=== PATIENT | male | born 1960 | race African-American/Black ===

== ENCOUNTER 2022-04-29 14:29 | Inpatient (IN) | payer MEDICARE, MEDICAID ==
[~2022-04-29] VITALS: Ht 177.8 cm; Wt 63.3 kg
[2022-04-29] MEDS ORDERED: FUROSEMIDE 40MG/4ML VIAL IV ONE (15:00)
[2022-04-29 15:13] LABS: BG BASE EXCESS -2.3 mmol/L (-2.0-2.0); BG CARBOXYHEMOGLOBIN 1.2 % (0.5-1.5); BG DEOXYHEMOGLOBIN 6.3 % (0.0-5.0); BG HCO3 ACT 21.6 mmol/L (22.0-26.0); BG METHEMOGLOBIN 0.1 % (0.0-1.5); BG OXYGEN SATURATION 93.6 % (92.0-98.5); BG OXYHEMOGLOBIN 92.4 % (94.0-97.0); BG SAMPLE SITE LEFT RADIAL; BG TOTAL HEMOGLOBIN 11.5 g/dL (12.0-18.0); BG VENT MODE ROOM AIR
[2022-04-29] MEDS: AZITHROMYCIN 500 MG in DEXT 5% WATER 250 ML IV SCH (15:30)
[2022-04-29] MEDS ORDERED: CEFTRIAXONE 1 G PREMIX 50 ML IV ONE (15:30)
[2022-04-29 16:24] LABS: BASOPHILS % 0.8 % (0.0-2.0); EOSINOPHILS % 2.1 % (0.0-5.0); HEMATOCRIT. 32.5 % (42.0-52.0); HEMOGLOBIN. 10.2 g/dL (14.0-18.0); LYMPHOCYTES % 9.5 % (20.0-50.0); MEAN CORPUSCULAR HEMOGLOBIN 31.2 pg (28.0-32.0); MEAN CORPUSCULAR VOLUME 99.6 fL (80.0-94.0); MEAN PLATELET VOLUME 9.5 fl (7.4-10.4); MONOCYTES % 6.7 % (2.0-8.0); NEUTROPHILS % 80.9 % (40.0-76.0); PLATELET 196 x1000/uL (130-400); RED BLOOD CELL COUNT 3.27 mill/uL (4.7-6.1); RED CELL DISTRIBUTION WIDTH 19.4 % (11.6-14.6)
[2022-04-29 16:42] LABS: CHLORIDE 115 mEq/L (98-107)
[2022-04-29] MEDS ORDERED: MAGNESIUM/ALUMINUM HYDROXIDE/SIMETHICONE 30ML UDC PO PRN (18:15)
[2022-04-29] MEDS ORDERED: ACETAMINOPHEN 325MG TABLET PO PRN (18:15)
[2022-04-29] MEDS ORDERED: ONDANSETRON HCL 4MG/2ML INJ IV PRN (18:15)
[2022-04-29] MEDS ORDERED: DOCUSATE SODIUM 100MG CAPSULE PO PRN (18:15)
[2022-04-29] MEDS ORDERED: CLONIDINE 0.1MG TABLET PO PRN (18:15)
[2022-04-29] MEDS ORDERED: GUAIFENESIN 200MG/10ML SUGAR FREE UDC PO PRN (18:15)
[2022-04-29] MEDS ORDERED: IPRATROPIUM/ALBUTEROL 0.5-3(2.5)MG/3ML NEB HHN PRN (18:15)
[2022-04-29] MEDS ORDERED: DIPHENHYDRAMINE 50MG/ML VIAL IV PRN (18:15)
[2022-04-29 18:46] LABS: BG BASE EXCESS -4.8 mmol/L (-2.0-2.0); BG CARBOXYHEMOGLOBIN 1.3 % (0.5-1.5); BG DEOXYHEMOGLOBIN 1.5 % (0.0-5.0); BG FRACTION INSPIRED OXYGEN 38; BG HCO3 ACT 19.9 mmol/L (22.0-26.0); BG METHEMOGLOBIN 0.3 % (0.0-1.5); BG OXYGEN SATURATION 98.5 % (92.0-98.5); BG OXYHEMOGLOBIN 96.9 % (94.0-97.0); BG PCO2 35.4 mmHg (35.0-45.0); BG PH 7.368 (7.350-7.450); BG PO2 123.2 mmHg (75.0-100.0); BG SAMPLE SITE RIGHT RADIAL; BG TOTAL HEMOGLOBIN 10.8 g/dL (12.0-18.0); BG VENT MODE NASAL CANNULA
[2022-04-29] MEDS ORDERED: FAMOTIDINE 20MG TABLET PO SCH (21:00)
[2022-04-29] MEDS: DILTIAZEM HCL 30MG TABLET PO SCH (22:01)
[2022-04-30] VITALS (13 sets, daily range): BP systolic 125–168; BP diastolic 86–100
[2022-04-30 00:44] LABS: CREATINE KINASE MB FRACTION 7.3 ng/mL (0.5-3.6)
[2022-04-30 00:58] LABS: HEPATITIS B SURFACE ANTIGEN NEGATIVE
[2022-04-30] MEDS ORDERED: CEFTRIAXONE 1 G PREMIX 50 ML IV SCH (06:45)
[2022-04-30] MEDS: DILTIAZEM HCL 30MG TABLET PO SCH ×2 (07:13→13:15)
[2022-04-30] MEDS ORDERED: FUROSEMIDE 40MG/4ML VIAL IVP SCH (07:15)
[2022-04-30] MEDS ORDERED: ASPIRIN 81MG EC TABLET PO SCH (09:00)
[2022-04-30] MEDS ORDERED: ENOXAPARIN 30MG/0.3ML SYR SUBCUT SCH (09:00)
[2022-04-30] MEDS ORDERED: CEFTRIAXONE 1,000 MG in DEXTROSE 5% WATER 50 ML IV SCH (15:00)
[2022-04-30 15:19] LABS: CHLORIDE 109 mEq/L (98-107)
[2022-04-30] MEDS: AZITHROMYCIN 500 MG in DEXT 5% WATER 250 ML IV SCH (15:30)
[2022-04-30 15:33] LABS: HDL CHOLESTEROL 48 mg/dL (40-59); LDL CHOLESTEROL 123 mg/dL (5-100); T4 FREE 1.21 ng/dL (0.76-1.46)
[2022-04-30] MEDS ORDERED: AMLODIPINE 5MG TABLET PO SCH (17:00)
[2022-04-30] MEDS ORDERED: PHENYLEPH/PRAMOXIN/GLYCR/PET RECTAL CREAM 26GM PR SCH (18:00)
[2022-05-01] MEDS ORDERED: PANTOPRAZOLE SODIUM 40 MG/VIAL IV SCH (09:00)
== END 2022-04-30 16:25 | disposition left against medical advice (07) | DRG 177 ==
LOC: ER 14:29 → MICUSO 16:20 → EDBEDREQ 16:22 → EDBEDREQTM 16:22 → ENRESERV 23:08 → 7EST 04-30 00:52
PROVIDERS: ADMIT Internal Medicine; ATTEND Internal Medicine
PROC: 5A09357 Assistance with Respiratory Ventilation, Less than 24 Consecutive Hours, Continuous Positive Airway Pressure (ICD-10-PCS; principal; 2022-04-29)
PROC: 5A1D70Z Performance of Urinary Filtration, Intermittent, Less than 6 Hours Per Day (ICD-10-PCS; 2022-04-30)
DX: J69.0 Pneumonitis due to inhalation of food and vomit (principal); J96.91 Respiratory failure, unspecified with hypoxia; N18.6 End stage renal disease; I13.2 Hypertensive heart and chronic kidney disease with heart failure and with stage 5 chronic kidney disease, or end stage renal disease; E46 Unspecified protein-calorie malnutrition; Z20.822 Contact with and (suspected) exposure to COVID-19; J44.9 Chronic obstructive pulmonary disease, unspecified; F17.210 Nicotine dependence, cigarettes, uncomplicated; D63.1 Anemia in chronic kidney disease; D53.9 Nutritional anemia, unspecified; E88.09 Other disorders of plasma-protein metabolism, not elsewhere classified; Z53.29 Procedure and treatment not carried out because of patient's decision for other reasons; R73.03 Prediabetes; E78.5 Hyperlipidemia, unspecified; I50.9 Heart failure, unspecified; Z99.2 Dependence on renal dialysis; W19.XXXA Unspecified fall, initial encounter; Y93.89 Activity, other specified; Y92.89 Other specified places as the place of occurrence of the external cause; Y99.8 Other external cause status; K64.9 Unspecified hemorrhoids
CPT/HCPCS: 36415; 36600; 71045; 80053; 80061; 82375; 82550; 82553; 82805; 82962; 83036; 83880; 84439; 84443; 84484; 85025; 86705; 86709; 86803; 87340; 87426; 90935; 93005; 93970; 99291; C9803; J0456; J0696; J1650; J1940; J7060

== ENCOUNTER 2022-05-12 04:29 | Inpatient (IN) | payer MEDICARE, MEDICAID ==
[~2022-05-12] VITALS: Ht 175.3 cm; Wt 74.8 kg
[2022-05-12 08:23] LABS: BASOPHILS % 0.7 % (0.0-2.0); EOSINOPHILS % 0.9 % (0.0-5.0); HEMOGLOBIN. 11.2 g/dL (14.0-18.0); LYMPHOCYTES % 10.4 % (20.0-50.0); MEAN CORPUSCULAR HEMOGLOBIN 30.7 pg (28.0-32.0); MEAN CORPUSCULAR VOLUME 98.5 fL (80.0-94.0); MONOCYTES % 8.1 % (2.0-8.0); NEUTROPHILS % 79.9 % (40.0-76.0); PLATELET 95 x1000/uL (130-400); RED BLOOD CELL COUNT 3.65 mill/uL (4.7-6.1); RED CELL DISTRIBUTION WIDTH 17.7 % (11.6-14.6)
[2022-05-12 08:44] LABS: CHLORIDE 108 mEq/L (98-107)
[2022-05-12] MEDS ORDERED: METHYLPREDNISOLONE SOD SUCC 125 MG/2 ML VIAL IV ONE (09:00)
[2022-05-12] MEDS ORDERED: ASPIRIN 81MG TABLET PO ONE (10:00)
[2022-05-12] MEDS ORDERED: IPRATROPIUM/ALBUTEROL 0.5-3(2.5)MG/3ML NEB HHN PRN (10:00)
[2022-05-12] MEDS ORDERED: NA PHOS,M-B/NA PHOS,DI-BA ENEMA 118ML PR PRN (10:00)
[2022-05-12] MEDS ORDERED: GUAIFENESIN 200MG/10ML SUGAR FREE UDC PO PRN (10:00)
[2022-05-12] MEDS ORDERED: DEXTROSE 50% WATER 50ML SYRINGE IV PRN (10:00)
[2022-05-12] MEDS ORDERED: ACETAMINOPHEN 325MG TABLET PO PRN ×2 (10:00)
[2022-05-12] MEDS ORDERED: DOCUSATE SODIUM 100MG CAPSULE PO PRN (10:00)
[2022-05-12] MEDS ORDERED: NALOXONE HCL 0.4MG/ML VIAL IV PRN (10:30)
[2022-05-12] MEDS ORDERED: MORPHINE SULFATE 2 MG/ML CPJ (NOT FOR IM USE) IV PRN (10:30)
[2022-05-12] MEDS: ENOXAPARIN 30MG/0.3ML SYR SUBCUT SCH (11:08)
[2022-05-12] MEDS: FUROSEMIDE 40MG/4ML VIAL IVP SCH ×2 (11:30→17:00)
[2022-05-12] MEDS: BLOOD SUGAR DIAGNOSTIC STRIP TEST SCH ×3 (11:43→22:47)
[2022-05-12] MEDS: INSULIN LISPRO 100 UNITS/ML SUBCUT SCH ×3 (12:00→22:47)
[2022-05-12 12:59] LABS: HEPATITIS B SURFACE ANTIGEN NEGATIVE
[2022-05-12] MEDS: CLONIDINE 0.1MG TABLET PO PRN ×2 (17:02→17:04)
[2022-05-12] MEDS: BENAZEPRIL 10MG TABLET PO SCH (20:27)
[2022-05-12] MEDS ORDERED: FAMOTIDINE 20MG TABLET PO SCH (21:00)
[2022-05-12 23:31] VITALS: BP 176/110
[2022-05-12 23:40] VITALS: BP 176/100
[2022-05-12 23:45] VITALS: BP 161/110
[2022-05-13] VITALS (11 sets, daily range): BP systolic 109–159; BP diastolic 56–106
[2022-05-13] MEDS ORDERED: SITA50TA3 PO (00:38)
[2022-05-13] MEDS: BLOOD SUGAR DIAGNOSTIC STRIP TEST SCH ×2 (06:21→11:40)
[2022-05-13] MEDS: INSULIN LISPRO 100 UNITS/ML SUBCUT SCH ×2 (06:28→12:10)
[2022-05-13 07:18] LABS: HEMATOCRIT 36.5 % (42.0-52.0); HEMOGLOBIN 11.7 g/dL (14.0-18.0); MEAN CORPUSCULAR HEMOGLOBIN 31.1 pg (28.0-32.0); MEAN CORPUSCULAR VOLUME 96.6 fL (80.0-94.0); PLATELET 115 x1000/uL (130-400); RED BLOOD CELL COUNT 3.78 mill/uL (4.7-6.1); RED CELL DISTRIBUTION WIDTH 18.2 % (11.6-14.6)
[2022-05-13 08:03] LABS: PHOSPHORUS 5.6 mg/dL (2.5-4.9)
[2022-05-13] MEDS: FUROSEMIDE 40MG/4ML VIAL IVP SCH (09:16)
[2022-05-13] MEDS: ENOXAPARIN 30MG/0.3ML SYR SUBCUT SCH (09:17)
[2022-05-13] MEDS: BENAZEPRIL 10MG TABLET PO SCH (09:17)
== END 2022-05-13 14:00 | disposition left against medical advice (07) | DRG 682 ==
LOC: ER 04:29 → EDBEDREQ 08:52 → MICUSO 09:53 → EDBEDREQTM 09:55 → EDBEDREQ 09:55 → 7EST 23:12
PROVIDERS: ADMIT Internal Medicine; ATTEND Internal Medicine
PROC: 5A1D70Z Performance of Urinary Filtration, Intermittent, Less than 6 Hours Per Day (ICD-10-PCS; principal; 2022-05-12)
DX: I12.0 Hypertensive chronic kidney disease with stage 5 chronic kidney disease or end stage renal disease (principal); E43 Unspecified severe protein-calorie malnutrition; J96.01 Acute respiratory failure with hypoxia; I21.A1 Myocardial infarction type 2; N18.6 End stage renal disease; J44.1 Chronic obstructive pulmonary disease with (acute) exacerbation; E87.70 Fluid overload, unspecified; E78.5 Hyperlipidemia, unspecified; E88.09 Other disorders of plasma-protein metabolism, not elsewhere classified; D63.1 Anemia in chronic kidney disease; R73.03 Prediabetes; F17.210 Nicotine dependence, cigarettes, uncomplicated; Z68.24 Body mass index [BMI] 24.0-24.9, adult; Z99.2 Dependence on renal dialysis; Z91.15 Patient's noncompliance with renal dialysis; Z53.29 Procedure and treatment not carried out because of patient's decision for other reasons; Z91.199 Patient's noncompliance with other medical treatment and regimen due to unspecified reason
CPT/HCPCS: 36415; 71045; 80048; 80053; 82962; 83036; 83735; 83880; 84100; 84484; 85025; 85027; 85379; 86705; 86709; 86803; 87340; 90935; 93005; 93970; 94640; 99285; J1650; J1815; J1940; J2930

== ENCOUNTER 2022-05-16 22:19 | Inpatient (IN) | payer MEDICARE, MEDICAID ==
[~2022-05-16] VITALS: Ht 182.9 cm; Wt 68.9 kg
[~2022-05-16 22:19] MED LIST: SITA50TA3 PO
[2022-05-16] MEDS ORDERED: METHYLPREDNISOLONE SOD SUCC 125 MG/2 ML VIAL IV STA (22:32)
[2022-05-16] MEDS ORDERED: IPRATROPIUM BROMIDE (0.02%) 0.5MG/2.5ML NEB HHN STA (22:32)
[2022-05-16] MEDS: ALBUTEROL (0.083%) 2.5MG/3ML NEB HHN SCH (22:47)
[2022-05-16 23:07] LABS: BASOPHILS % 0.5 % (0.0-2.0); EOSINOPHILS % 1.2 % (0.0-5.0); HEMATOCRIT. 32.6 % (42.0-52.0); HEMOGLOBIN. 10.3 g/dL (14.0-18.0); LYMPHOCYTES % 11.8 % (20.0-50.0); MEAN CORPUSCULAR HEMOGLOBIN 30.3 pg (28.0-32.0); MEAN CORPUSCULAR VOLUME 95.9 fL (80.0-94.0); MEAN PLATELET VOLUME 9.5 fl (7.4-10.4); MONOCYTES % 6.3 % (2.0-8.0); NEUTROPHILS % 80.2 % (40.0-76.0); PLATELET 119 x1000/uL (130-400); RED BLOOD CELL COUNT 3.41 mill/uL (4.7-6.1); RED CELL DISTRIBUTION WIDTH 17.9 % (11.6-14.6)
[2022-05-16 23:11] LABS: CHLORIDE 117 mEq/L (98-107)
[2022-05-16] MEDS ORDERED: AZITHROMYCIN 500 MG in DEXT 5% WATER 250 ML IV STA (23:40)
[2022-05-16] MEDS ORDERED: CEFTRIAXONE 1 G PREMIX 50 ML IV ONE (23:45)
[2022-05-16] MEDS ORDERED: ASPIRIN 325MG TABLET PO ONE (23:45)
[2022-05-17] MEDS ORDERED: ASPIRIN 325MG TABLET PO NR (03:15)
[2022-05-17] MEDS ORDERED: AZITHROMYCIN 500 MG in DEXT 5% WATER 250 ML IV NR (03:15)
[2022-05-17] MEDS ORDERED: CEFTRIAXONE 1 G PREMIX 50 ML IV NR (03:15)
[2022-05-17] MEDS ORDERED: HYDRALAZINE 20MG/ML VIAL IV ONE (03:45)
[2022-05-17] MEDS ORDERED: ACETAMINOPHEN 325MG TABLET PO PRN (09:15)
[2022-05-17] MEDS ORDERED: ONDANSETRON 4MG ODT PO NR (09:15)
[2022-05-17] MEDS: NIFEDIPINE XL 60MG TAB PO SCH (09:15)
[2022-05-17 09:30] LABS: BG BASE EXCESS -4.7 mmol/L (-2.0-2.0); BG CARBOXYHEMOGLOBIN 0.5 % (0.5-1.5); BG DEOXYHEMOGLOBIN 6.7 % (0.0-5.0); BG FRACTION INSPIRED OXYGEN 21; BG HCO3 ACT 20.5 mmol/L (22.0-26.0); BG METHEMOGLOBIN 0.3 % (0.0-1.5); BG OXYGEN SATURATION 93.2 % (92.0-98.5); BG OXYHEMOGLOBIN 92.5 % (94.0-97.0); BG PCO2 38.3 mmHg (35.0-45.0); BG PH 7.347 (7.350-7.450); BG PO2 70.6 mmHg (75.0-100.0); BG SAMPLE SITE LEFT RADIAL; BG TOTAL HEMOGLOBIN 11.2 g/dL (12.0-18.0); BG VENT MODE ROOM AIR
[2022-05-17] MEDS ORDERED: IPRATROPIUM/ALBUTEROL 0.5-3(2.5)MG/3ML NEB HHN PRN (12:30)
[2022-05-17] MEDS ORDERED: HYDRALAZINE HCL 100MG TABLET PO SCH (14:45)
[2022-05-17 18:43] VITALS: BP 149/87
[2022-05-17] MEDS: METHYLPREDNISOLONE SOD SUCC 125 MG/2 ML VIAL IV SCH ×2 (19:15→23:45)
[2022-05-17 20:00] VITALS: BP 150/95
[2022-05-17] MEDS: HYDRALAZINE HCL 100MG TABLET PO SCH (21:11)
[2022-05-17] MEDS: IPRATROPIUM/ALBUTEROL 0.5-3(2.5)MG/3ML NEB HHN SCH (21:22)
[2022-05-17 22:00] VITALS: BP 131/85
[2022-05-18] VITALS (20 sets, daily range): BP systolic 119–153; BP diastolic 66–101
[2022-05-18] MEDS: IPRATROPIUM/ALBUTEROL 0.5-3(2.5)MG/3ML NEB HHN SCH ×5 (02:42→21:20)
[2022-05-18 05:24] LABS: HEMATOCRIT. 33.7 % (42.0-52.0); HEMOGLOBIN. 10.7 g/dL (14.0-18.0); MEAN CORPUSCULAR HEMOGLOBIN 30.5 pg (28.0-32.0); MEAN CORPUSCULAR VOLUME 96.2 fL (80.0-94.0); MEAN PLATELET VOLUME 10.6 fl (7.4-10.4); PLATELET 125 x1000/uL (130-400); RED CELL DISTRIBUTION WIDTH 17.6 % (11.6-14.6)
[2022-05-18] MEDS: METHYLPREDNISOLONE SOD SUCC 125 MG/2 ML VIAL IV SCH ×2 (06:05→12:24)
[2022-05-18] MEDS: HYDRALAZINE HCL 100MG TABLET PO SCH ×2 (08:27→21:15)
[2022-05-18] MEDS: NIFEDIPINE XL 60MG TAB PO SCH (08:27)
[2022-05-18] MEDS ORDERED: SODIUM POLYSTYRENE SULFONATE 15 G/60 ML BOT PO SCH (09:00)
[2022-05-18 12:27] LABS: PLATELET ESTIMATE SLIGHTLY DECREASED
[2022-05-18] MEDS: METHYLPREDNISOLONE SOD SUCC 40 MG/ML VIAL IV SCH (17:09)
[2022-05-19] VITALS: BP 135/79
[2022-05-19 02:00] VITALS: BP 142/81
[2022-05-19 04:00] VITALS: BP 142/86
[2022-05-19 08:00] VITALS: BP 147/86
[2022-05-19 08:09] LABS: HEMATOCRIT. 30.8 % (42.0-52.0); MEAN CORPUSCULAR VOLUME 95.2 fL (80.0-94.0); MEAN PLATELET VOLUME 10.9 fl (7.4-10.4); PLATELET 125 x1000/uL (130-400); RED BLOOD CELL COUNT 3.23 mill/uL (4.7-6.1); RED CELL DISTRIBUTION WIDTH 16.9 % (11.6-14.6)
[2022-05-19] MEDS: IPRATROPIUM/ALBUTEROL 0.5-3(2.5)MG/3ML NEB HHN SCH ×3 (08:15→14:30)
[2022-05-19] MEDS: NIFEDIPINE XL 60MG TAB PO SCH (09:00)
[2022-05-19] MEDS: METHYLPREDNISOLONE SOD SUCC 40 MG/ML VIAL IV SCH (09:00)
[2022-05-19] MEDS: HYDRALAZINE HCL 100MG TABLET PO SCH (09:00)
[2022-05-19 10:03] VITALS: BP 142/77
[2022-05-19 18:28] LABS: PLATELET ESTIMATE SLIGHTLY DECREASED
[2022-05-22 22:32] LABS: HEPATITIS B SURFACE ANTIGEN NEGATIVE
== END 2022-05-19 19:11 | disposition left against medical advice (07) | DRG 189 ==
LOC: ER 22:19 → EDBEDREQ 05-17 01:58 → EDBEDREQTM 05-17 01:58 → MICUSO 05-17 04:23 → 5EST 05-17 20:11
PROVIDERS: ADMIT Internal Medicine; ATTEND Internal Medicine
PROC: 5A09357 Assistance with Respiratory Ventilation, Less than 24 Consecutive Hours, Continuous Positive Airway Pressure (ICD-10-PCS; principal; 2022-05-16)
PROC: 5A09357 Assistance with Respiratory Ventilation, Less than 24 Consecutive Hours, Continuous Positive Airway Pressure (ICD-10-PCS; 2022-05-17)
PROC: 5A1D70Z Performance of Urinary Filtration, Intermittent, Less than 6 Hours Per Day (ICD-10-PCS; 2022-05-18)
PROC: 5A09357 Assistance with Respiratory Ventilation, Less than 24 Consecutive Hours, Continuous Positive Airway Pressure (ICD-10-PCS; 2022-05-18)
PROC: 5A1D70Z Performance of Urinary Filtration, Intermittent, Less than 6 Hours Per Day (ICD-10-PCS; 2022-05-19)
DX: J96.01 Acute respiratory failure with hypoxia (principal); N18.6 End stage renal disease; J44.1 Chronic obstructive pulmonary disease with (acute) exacerbation; I13.2 Hypertensive heart and chronic kidney disease with heart failure and with stage 5 chronic kidney disease, or end stage renal disease; E46 Unspecified protein-calorie malnutrition; E87.0 Hyperosmolality and hypernatremia; E87.70 Fluid overload, unspecified; Z20.822 Contact with and (suspected) exposure to COVID-19; I50.9 Heart failure, unspecified; E87.5 Hyperkalemia; D63.1 Anemia in chronic kidney disease; Z99.2 Dependence on renal dialysis; Z99.81 Dependence on supplemental oxygen
CPT/HCPCS: 36415; 36600; 71045; 76604; 80048; 80053; 82375; 82805; 83880; 84484; 85025; 86705; 86709; 86803; 87340; 87426; 90935; 92950; 93005; 93880; 94640; 94644; 94660; 99291; J0360; J0456; J0696; J2920; J2930; J7060

== ENCOUNTER 2022-09-09 19:59 | Inpatient (IN) | payer MEDICARE, MEDICAID ==
[~2022-09-09] VITALS: Ht 170.2 cm; Wt 58.5 kg
[2022-09-09] MEDS ORDERED: FUROSEMIDE 100MG/10ML VIAL IVP ONE (20:30)
[2022-09-09] MEDS ORDERED: FUROSEMIDE 40MG/4ML VIAL IV NR (20:45)
[2022-09-09] MEDS: IPRATROPIUM/ALBUTEROL 0.5-3(2.5)MG/3ML NEB HHN NR (20:58)
[2022-09-09 21:09] LABS: HEMATOCRIT. 32.3 % (42.0-52.0); HEMOGLOBIN. 10.2 g/dL (14.0-18.0); MEAN CORPUSCULAR HEMOGLOBIN 29.9 pg (28.0-32.0); MEAN CORPUSCULAR VOLUME 94.9 fL (80.0-94.0); MEAN PLATELET VOLUME 8.1 fl (7.4-10.4); PLATELET 196 x1000/uL (130-400); RED BLOOD CELL COUNT 3.41 mill/uL (4.7-6.1); RED CELL DISTRIBUTION WIDTH 18.6 % (11.6-14.6)
[2022-09-09 21:15] LABS: CHLORIDE 107 mEq/L (98-107)
[2022-09-09 21:50] LABS: PLATELET ESTIMATE NORMAL
[2022-09-10] VITALS (79 sets, daily range): BP systolic 70–147; BP diastolic 45–98
[2022-09-10] MEDS: IPRATROPIUM/ALBUTEROL 0.5-3(2.5)MG/3ML NEB HHN NR ×2 (01:32→01:45)
[2022-09-10] MEDS ORDERED: DOCUSATE SODIUM 100MG CAPSULE PO PRN (01:45)
[2022-09-10] MEDS ORDERED: MAGNESIUM/ALUMINUM HYDROXIDE/SIMETHICONE 30ML UDC PO PRN (01:45)
[2022-09-10] MEDS ORDERED: ACETAMINOPHEN 325MG TABLET PO PRN ×2 (01:45)
[2022-09-10] MEDS ORDERED: GUAIFENESIN 200MG/10ML SUGAR FREE UDC PO PRN (01:45)
[2022-09-10] MEDS ORDERED: ONDANSETRON HCL 4MG/2ML INJ IV PRN (01:45)
[2022-09-10] MEDS ORDERED: ENOXAPARIN 40MG/0.4ML SYR SUBCUT SCH (01:45)
[2022-09-10] MEDS ORDERED: CLONIDINE 0.1MG TABLET PO PRN (01:45)
[2022-09-10 02:15] LABS: CLARITY URINE CLEAR (CLEAR); COLOR URINE ORANGE (YELLOW); KETONES URINE NEGATIVE (NEGATIVE); LEUKOCYTE ESTERASE URINE NEGATIVE (NEGATIVE); NITRITE URINE NEGATIVE (NEGATIVE); OCCULT BLOOD URINE 3+ (NEGATIVE); PROTEIN URINE 3+ (NEGATIVE); SPECIFIC GRAVITY URINE 1.013 (1.005-1.030); UROBILINOGEN URINE 0.2 E.U./dL (0.2-1.0)
[2022-09-10] MEDS ORDERED: PROPOFOL 10MG/ML 100ML 100 ML IV SCH (03:00)
[2022-09-10 03:15] LABS: *AMPHETAMINES SCREEN URINE NEGATIVE (NEGATIVE); *BARBITURATES SCREEN URINE NEGATIVE (NEGATIVE); *BENZODIAZEPINES SCREEN URINE NEGATIVE (NEGATIVE); *COCAINE SCREEN URINE NEGATIVE (NEGATIVE); CANNABINOID URINE SCREEN PRESUMTIVE POSITIVE (NEGATIVE); METHADONE URINE SCREEN NEGATIVE (NEGATIVE); OPIATES URINE SCREEN NEGATIVE (NEGATIVE); PHENCYCLIDINE URINE SCREEN NEGATIVE (NEGATIVE)
[2022-09-10 03:45] LABS: BG BASE EXCESS -6.8 mmol/L (-2.0-2.0); BG CARBOXYHEMOGLOBIN 0.4 % (0.5-1.5); BG DEOXYHEMOGLOBIN 0.2 % (0.0-5.0); BG FRACTION INSPIRED OXYGEN 100; BG HCO3 ACT 21.2 mmol/L (22.0-26.0); BG METHEMOGLOBIN 0.5 % (0.0-1.5); BG OXYGEN SATURATION 99.8 % (92.0-98.5); BG OXYHEMOGLOBIN 98.9 % (94.0-97.0); BG PCO2 54.6 mmHg (35.0-45.0); BG PH 7.208 (7.350-7.450); BG PO2 421.4 mmHg (75.0-100.0); BG SAMPLE SITE LEFT RADIAL; BG TOTAL HEMOGLOBIN 11.1 g/dL (12.0-18.0); BG VENT MODE VENT - AC
[2022-09-10 06:16] LABS: BG BASE EXCESS -6.8 mmol/L (-2.0-2.0); BG CARBOXYHEMOGLOBIN 0.2 % (0.5-1.5); BG DEOXYHEMOGLOBIN 0.9 % (0.0-5.0); BG FRACTION INSPIRED OXYGEN 60; BG HCO3 ACT 19.6 mmol/L (22.0-26.0); BG METHEMOGLOBIN 0.4 % (0.0-1.5); BG OXYGEN SATURATION 99.1 % (92.0-98.5); BG OXYHEMOGLOBIN 98.5 % (94.0-97.0); BG PCO2 42.7 mmHg (35.0-45.0); BG PO2 235.5 mmHg (75.0-100.0); BG SAMPLE SITE RIGHT RADIAL; BG TOTAL HEMOGLOBIN 10.6 g/dL (12.0-18.0); BG TOTAL RESPIRATORY RATE 25 b/min; BG VENT MODE VENT - AC
[2022-09-10] MEDS ORDERED: FENTANYL CITRATE/PF 2,500 MCG in SODIUM CHLORIDE 0.9% 200 ML IV PRN (06:30)
[2022-09-10] MEDS ORDERED: NOREPINEPHRINE 32 MG in DEXT 5% WATER 218 ML IV PRN (06:30)
[2022-09-10] MEDS ORDERED: FENTANYL 2500MCG/250ML PMX 250 ML IV PRN (06:43)
[2022-09-10] MEDS ORDERED: METHYLPREDNISOLONE SOD SUCC 125 MG/2 ML VIAL IV SCH (08:00)
[2022-09-10] MEDS: IPRATROPIUM/ALBUTEROL 0.5-3(2.5)MG/3ML NEB HHN SCH ×4 (08:17→20:45)
[2022-09-10] MEDS: METHYLPREDNISOLONE SOD SUCC 40 MG/ML VIAL IV SCH ×3 (08:54→23:40)
[2022-09-10] MEDS ORDERED: FUROSEMIDE 40MG/4ML VIAL IV SCH (09:00)
[2022-09-10] MEDS ORDERED: ENOXAPARIN 30MG/0.3ML SYR SUBCUT SCH (09:00)
[2022-09-10] MEDS ORDERED: PANTOPRAZOLE SODIUM 40 MG/VIAL IV SCH (09:45)
[2022-09-10 11:35] LABS: HEMATOCRIT. 31.1 % (42.0-52.0); HEMOGLOBIN. 9.9 g/dL (14.0-18.0); MEAN CORPUSCULAR HEMOGLOBIN 29.8 pg (28.0-32.0); PLATELET 191 x1000/uL (130-400); RED BLOOD CELL COUNT 3.34 mill/uL (4.7-6.1); RED CELL DISTRIBUTION WIDTH 17.8 % (11.6-14.6)
[2022-09-10 11:38] LABS: CHLORIDE 104 mEq/L (98-107)
[2022-09-10 11:40] LABS: INR 1.1; PROTHROMBIN TIME 12.2 sec (9.6-11.0)
[2022-09-10 12:11] LABS: VITAMIN B12 SERUM 1361 pg/mL (211-911)
[2022-09-10 13:21] LABS: PLATELET ESTIMATE NORMAL
[2022-09-10 13:44] LABS: HEPATITIS B SURFACE ANTIGEN NEGATIVE
[2022-09-10] MEDS ORDERED: PROPOFOL 10MG/ML 100ML 100 ML IV PRN (14:00)
[2022-09-10] MEDS ORDERED: VANCOMYCIN 1.25GM PMX (XELLIA) 250 ML IV NR (16:00)
[2022-09-10] MEDS: PIPERACILLIN/TAZOBACTAM 3.375 G in DEXTROSE 5% WATER 50 ML IV SCH ×2 (16:08→23:39)
[2022-09-10] MEDS: PANTOPRAZOLE SODIUM 40 MG/VIAL IV SCH (20:34)
[2022-09-10] MEDS ORDERED: FAMOTIDINE 20MG TABLET PO SCH (21:00)
[2022-09-11] VITALS (69 sets, daily range): BP systolic 87–144; BP diastolic 54–90
[2022-09-11] MEDS: IPRATROPIUM/ALBUTEROL 0.5-3(2.5)MG/3ML NEB HHN SCH ×8 (00:32→23:50)
[2022-09-11 05:08] LABS: INR 1.1; PROTHROMBIN TIME 11.9 sec (9.6-11.0)
[2022-09-11 05:22] LABS: HDL CHOLESTEROL 37 mg/dL (40-59); LDL CHOLESTEROL 61 mg/dL (5-100); T4 FREE 1.02 ng/dL (0.76-1.46); TOTAL IRON BINDING CAPACITY 153 ug/dL (250-450)
[2022-09-11] MEDS: PIPERACILLIN/TAZOBACTAM 3.375 G in DEXTROSE 5% WATER 50 ML IV SCH ×2 (08:10→20:31)
[2022-09-11] MEDS: METHYLPREDNISOLONE SOD SUCC 40 MG/ML VIAL IV SCH ×2 (08:10→17:27)
[2022-09-11] MEDS: PANTOPRAZOLE SODIUM 40 MG/VIAL IV SCH ×2 (08:10→20:31)
[2022-09-11] MEDS ORDERED: FENTANYL CITRATE 2,500 MCG in SODIUM CHLORIDE 0.9% 200 ML IV PRN (08:30)
[2022-09-11 08:46] LABS: BG BASE EXCESS -4.9 mmol/L (-2.0-2.0); BG CARBOXYHEMOGLOBIN 0.3 % (0.5-1.5); BG DEOXYHEMOGLOBIN 2.4 % (0.0-5.0); BG HCO3 ACT 21.6 mmol/L (22.0-26.0); BG METHEMOGLOBIN 0.5 % (0.0-1.5); BG OXYGEN SATURATION 97.6 % (92.0-98.5); BG OXYHEMOGLOBIN 96.8 % (94.0-97.0); BG PCO2 46.2 mmHg (35.0-45.0); BG PH 7.287 (7.350-7.450); BG PO2 112.7 mmHg (75.0-100.0); BG SAMPLE SITE LEFT RADIAL; BG TOTAL HEMOGLOBIN 10.3 g/dL (12.0-18.0); BG VENT MODE VENT - AC
[2022-09-11 10:37] LABS: HEMATOCRIT. 28.5 % (42.0-52.0); HEMOGLOBIN. 8.9 g/dL (14.0-18.0); MEAN CORPUSCULAR HEMOGLOBIN 29.3 pg (28.0-32.0); MEAN PLATELET VOLUME 9.3 fl (7.4-10.4); PLATELET 172 x1000/uL (130-400); RED BLOOD CELL COUNT 3.03 mill/uL (4.7-6.1); RED CELL DISTRIBUTION WIDTH 17.7 % (11.6-14.6)
[2022-09-11 12:12] LABS: PLATELET ESTIMATE NORMAL
[2022-09-11] MEDS ORDERED: LORAZEPAM 2MG/ML CPJ IV PRN (13:00)
[2022-09-11] MEDS ORDERED: MORPHINE SULFATE 2 MG/ML CPJ (NOT FOR IM USE) IV PRN (13:00)
[2022-09-11] MEDS ORDERED: NALOXONE HCL 0.4MG/ML VIAL IV PRN (13:15)
[2022-09-11] MEDS: VANCOMYCIN 1000MG/20ML ORAL SOLN PO SCH ×2 (14:14→17:27)
[2022-09-12] VITALS (48 sets, daily range): BP systolic 96–154; BP diastolic 28–118
[2022-09-12] MEDS: VANCOMYCIN 1000MG/20ML ORAL SOLN PO SCH ×4 (00:27→17:18)
[2022-09-12] MEDS: METHYLPREDNISOLONE SOD SUCC 40 MG/ML VIAL IV SCH ×3 (00:27→16:46)
[2022-09-12] MEDS: IPRATROPIUM/ALBUTEROL 0.5-3(2.5)MG/3ML NEB HHN SCH ×5 (04:05→19:59)
[2022-09-12 05:15] LABS: HEMATOCRIT. 26.9 % (42.0-52.0); HEMOGLOBIN. 8.4 g/dL (14.0-18.0); MEAN CORPUSCULAR VOLUME 92.6 fL (80.0-94.0); MEAN PLATELET VOLUME 8.9 fl (7.4-10.4); PLATELET 146 x1000/uL (130-400); RED BLOOD CELL COUNT 2.91 mill/uL (4.7-6.1); RED CELL DISTRIBUTION WIDTH 18.7 % (11.6-14.6)
[2022-09-12 08:25] LABS: BG BASE EXCESS -8.3 mmol/L (-2.0-2.0); BG CARBOXYHEMOGLOBIN 0.3 % (0.5-1.5); BG DEOXYHEMOGLOBIN 2.8 % (0.0-5.0); BG FRACTION INSPIRED OXYGEN 30; BG METHEMOGLOBIN 0.5 % (0.0-1.5); BG OXYGEN SATURATION 97.2 % (92.0-98.5); BG OXYHEMOGLOBIN 96.4 % (94.0-97.0); BG PH 7.271 (7.350-7.450); BG PO2 117.4 mmHg (75.0-100.0); BG SAMPLE SITE LEFT RADIAL; BG TOTAL HEMOGLOBIN 9.4 g/dL (12.0-18.0); BG VENT MODE VENT - AC
[2022-09-12] MEDS: PIPERACILLIN/TAZOBACTAM 3.375 G in DEXTROSE 5% WATER 50 ML IV SCH ×2 (08:30→22:35)
[2022-09-12] MEDS: PANTOPRAZOLE SODIUM 40 MG/VIAL IV SCH ×2 (08:30→20:02)
[2022-09-12 11:12] LABS: BG BASE EXCESS -9.7 mmol/L (-2.0-2.0); BG CARBOXYHEMOGLOBIN 0.4 % (0.5-1.5); BG DEOXYHEMOGLOBIN 3.6 % (0.0-5.0); BG FRACTION INSPIRED OXYGEN 30; BG HCO3 ACT 16.6 mmol/L (22.0-26.0); BG METHEMOGLOBIN 0.3 % (0.0-1.5); BG OXYGEN SATURATION 96.4 % (92.0-98.5); BG OXYHEMOGLOBIN 95.7 % (94.0-97.0); BG PCO2 37.5 mmHg (35.0-45.0); BG PH 7.263 (7.350-7.450); BG PO2 103.4 mmHg (75.0-100.0); BG SAMPLE SITE LEFT BRACHIAL; BG TOTAL HEMOGLOBIN 9.4 g/dL (12.0-18.0); BG VENT MODE VENT - CPAP
[2022-09-12 12:45] LABS: PLATELET ESTIMATE NORMAL
[2022-09-13] MEDS: METHYLPREDNISOLONE SOD SUCC 40 MG/ML VIAL IV SCH ×2 (00:22→10:25)
[2022-09-13] MEDS: VANCOMYCIN 1000MG/20ML ORAL SOLN PO SCH ×2 (00:22→06:22)
[2022-09-13 00:26] VITALS: BP 122/81
[2022-09-13] MEDS: IPRATROPIUM/ALBUTEROL 0.5-3(2.5)MG/3ML NEB HHN SCH ×3 (01:19→09:36)
[2022-09-13 04:00] VITALS: BP 148/84
[2022-09-13 08:00] VITALS: BP 129/80
[2022-09-13 08:11] LABS: HEMATOCRIT. 28.2 % (42.0-52.0); HEMOGLOBIN. 9.2 g/dL (14.0-18.0); MEAN CORPUSCULAR HEMOGLOBIN 29.6 pg (28.0-32.0); MEAN CORPUSCULAR VOLUME 90.6 fL (80.0-94.0); MEAN PLATELET VOLUME 9.4 fl (7.4-10.4); PLATELET 146 x1000/uL (130-400); RED BLOOD CELL COUNT 3.11 mill/uL (4.7-6.1); RED CELL DISTRIBUTION WIDTH 17.8 % (11.6-14.6)
[2022-09-13 09:28] LABS: PLATELET ESTIMATE NORMAL
[2022-09-13 10:00] VITALS: BP 136/86
[2022-09-13] MEDS: PANTOPRAZOLE SODIUM 40 MG/VIAL IV SCH (10:25)
[2022-09-13] MEDS: PIPERACILLIN/TAZOBACTAM 3.375 G in DEXTROSE 5% WATER 50 ML IV SCH (10:26)
== END 2022-09-13 11:00 | disposition home or self-care (01) | DRG 871 ==
LOC: ER 19:59 → MICUSO 22:47 → 3WST 09-12 20:47
PROVIDERS: ADMIT Hospitalist; ATTEND Hospitalist
PROC: 5A09357 Assistance with Respiratory Ventilation, Less than 24 Consecutive Hours, Continuous Positive Airway Pressure (ICD-10-PCS; principal; 2022-09-09)
PROC: 5A1945Z Respiratory Ventilation, 24-96 Consecutive Hours (ICD-10-PCS; 2022-09-10)
PROC: 0BH17EZ Insertion of Endotracheal Airway into Trachea, Via Natural or Artificial Opening (ICD-10-PCS; 2022-09-10)
PROC: 5A1D70Z Performance of Urinary Filtration, Intermittent, Less than 6 Hours Per Day (ICD-10-PCS; 2022-09-10)
PROC: 5A1D70Z Performance of Urinary Filtration, Intermittent, Less than 6 Hours Per Day (ICD-10-PCS; 2022-09-12)
DX: A41.9 Sepsis, unspecified organism (principal); I50.33 Acute on chronic diastolic (congestive) heart failure; N18.6 End stage renal disease; J96.22 Acute and chronic respiratory failure with hypercapnia; J96.21 Acute and chronic respiratory failure with hypoxia; R65.21 Severe sepsis with septic shock; A04.72 Enterocolitis due to Clostridium difficile, not specified as recurrent; E46 Unspecified protein-calorie malnutrition; I13.2 Hypertensive heart and chronic kidney disease with heart failure and with stage 5 chronic kidney disease, or end stage renal disease; J44.1 Chronic obstructive pulmonary disease with (acute) exacerbation; K92.2 Gastrointestinal hemorrhage, unspecified; E87.20 Acidosis, unspecified; D63.1 Anemia in chronic kidney disease; Z99.2 Dependence on renal dialysis; Z99.81 Dependence on supplemental oxygen; Z68.20 Body mass index [BMI] 20.0-20.9, adult
CPT/HCPCS: 31500; 36415; 36600; 71045; 80048; 80053; 80061; 80202; 80305; 81003; 82270; 82375; 82607; 82728; 82746; 82805; 83036; 83540; 83550; 83605; 83880; 84145; 84439; 84443; 84484; 85025; 85044; 85379; 86705; 86709; 86803; 87070; 87077; 87340; 87493; 90935; 93005; 93306; 93970; 94002; 94003; 94640; 94660; 99291; A6261; C9113; J1940; J2543; J2704; J2920; J3010; J3370; J3490; J7050; J7060; A4315